=== PATIENT | male | born 1980 | race Caucasian/White ===

== ENCOUNTER 2018-06-26 04:20 | Emergency (ER) | payer MEDICAID ==
[~2018-06-26] VITALS: Ht 167.6 cm; Wt 82.6 kg
[2018-06-26 04:26] VITALS: Ht 167.6 cm; Wt 82.6 kg
[2018-06-26 04:56] LABS: microscopic required? NO
[2018-06-26 05:17] LABS: BASOPHIL % 0.5 % (0-2); PLATELET COUNT 222 x10^3mcL (130-400); RED CELL DISTRIBUTION WIDTH 12.8 % (11.5-14.5)
[2018-06-26 05:25] LABS: urine erythrocyte NEGATIVE (NEGATIVE)
[2018-06-26 05:29] LABS: CARBON DIOXIDE 25.4 mmol/L (21-32); CHLORIDE SERUM 106 mmol/L (98-107); CREATININE SERUM 1.1 mg/dL (0.7-1.3); GFR1 > 60 mL/min; GLUCOSE SERUM 110 mg/dL (74-106); POTASSIUM SERUM 4.2 mmol/L (3.5-5.1); SODIUM SERUM 137 mmol/L (136-145)
[2018-06-26 05:35] LABS: ALBUMIN 3.7 g/dL (3.4-5.0); ALKALINE PHOSPHATASE 102 U/L (46-116); ALT/SGPT 84 U/L (16-63); AST/SGOT 57 U/L (15-37); BILIRUBIN TOTAL 0.37 mg/dL (0.20-1.00); TOTAL PROTEIN, SERUM 7.2 g/dL (6.4-8.2)
[2018-06-26 06:15] VITALS: BP 122/69
== END 2018-06-26 06:15 | disposition home or self-care (01) ==
LOC: ED 04:20
PROVIDERS: Emergency Medicine
DX: K59.00 Constipation, unspecified (principal)
CPT/HCPCS: 36415